=== PATIENT | male | born 1975 | race Caucasian/White ===

== ENCOUNTER 2021-08-14 20:52 | Emergency (ER) | payer BC ==
[2021-08-14] MEDS ORDERED: Amoxicillin/Clavulanate K 875-125 MG Tab ONE (21:45)
[2021-08-14] MEDS: cefTRIAXone 1 GM Vial IM ONE (21:49)
--- NOTE | 2021-08-14 21:55 | EDM.PDOC ---
ED HPI GENERAL MEDICAL PROBLEM - General Chief Complaint: Skin Complaint Stated Complaint: CELLULITIS Time Seen by Provider: 08/14/21 21:25 - History of Present Illness INITIAL COMMENTS - FREE TEXT/NARRATIVE: Pt here with his with C/O a red tender rash to the Rt lower leg. Started today, he has felt tired as well. No injury to the leg. He has hx of Cellulitis earlier this yr and was treated as an in pt in [place], where he lives. - Related Data Allergies Allergy/AdvReac Type Severity Reaction Status Date / Time No Known Allergies Allergy Verified 08/14/21 21:27 Past Medical History Cardiovascular History: Reports: High Cholesterol, Hypertension Endocrine/Metabolic History: Reports: Diabetes, Type II Dermatologic History: Reports: Cellulitis ED ROS GENERAL - Review of Systems Review Of Systems: Comprehensive ROS is negative, except as noted in HPI. Skin: Reports: Rash ED EXAM, SKIN/RASH Exam: See Below Skin: Other (Blotchy macular red rash noted on most of the lower Rt leg. Stops just below the knee. No blisters, pustules, or scabs. He does have a fissue like crack in his heel, but the rash does not seem to be in that area. Skin is warm to touch over the area of involvement.) Course - Vital Signs Last Recorded V/S: Last Vital Signs Temp 98.6 F 08/14/21 21:33 Pulse 109 H 08/14/21 21:33 Resp 20 08/14/21 21:33 BP 102/65 08/14/21 21:33 Pulse Ox 96 08/14/21 21:33 - Orders/Labs/Meds Meds: Medications Discontinued Medications Generic Name Dose Route Start Last Admin Trade Name Ozzy PRN Reason Stop Dose Admin Ceftriaxone Sodium 1 gm 08/14/21 21:42 Ceftriaxone 1 Gm Vial IM 08/14/21 21:43 ONETIME ONE - Re-Assessments/Exams Free Text/Narrative Re-Assessment/Exam: 08/14/21 21:53 Rocephin 1 Gm givem IM. Augmentin will also be started tonite. He is to rest, keep his leg elevated, and apply heat frequently. The borders were marked with a pen. Follow up in a day if symptoms get worse, or as needed. Departure - Departure Time of Disposition: 21:45 Disposition: Home, Self-Care 01 Condition: Good Clinical Impression: Cellulitis Qualifiers: Site of cellulitis: extremity Site of cellulitis of extremity: lower extremity Laterality: right Qualified Code(s): L03.115 - Cellulitis of right lower limb - Discharge Information *PRESCRIPTION DRUG MONITORING PROGRAM REVIEWED*: No *COPY OF PRESCRIPTION DRUG MONITORING REPORT IN PATIENT ROCCO: Yes Referrals: PCP,Unknown [Primary Care Provider] - Additional Instructions: Rest - elevate leg most of the time. Take Augmentin as directed. Apply heat for 15 minutes every 2-3 hours while awake. Monitor condition closely - follow up if symptoms get worse. Sepsis Event Note (ED) - Focused Exam Vital Signs: Vital Signs Temp Pulse Resp BP Pulse Ox 08/14/21 21:33 98.6 F 109 H 20 102/65 96
== END 2021-08-14 21:50 | disposition home or self-care (01) ==
LOC: LB.ED 20:52
DX: L03.115 Cellulitis of right lower limb (principal); E11.9 Type 2 diabetes mellitus without complications; I10 Essential (primary) hypertension
CPT/HCPCS: 96372; 99283; A9270-GY; J0696